=== PATIENT | female | born 1950 | race Caucasian/White ===

== ENCOUNTER 2017-02-15 05:14 | Emergency (ER) | payer MEDICARE ==
[2017-02-15] MEDS ORDERED: Fluor-I-Strip/Ful-Flo OP ONE ×2 (05:43→05:46)
[2017-02-15] MEDS ORDERED: TETRACAINE 0.5% STERI-UNIT SOL OP STA (05:43)
[2017-02-15] MEDS ORDERED: Eye-Stream Solution OP ONE (05:43)
[2017-02-15] MEDS ORDERED: Eye-Stream Solution ONE (05:46)
[2017-02-15] MEDS ORDERED: TETRACAINE 0.5% STERI-UNIT SOL OP ONE (05:46)
--- NOTE | 2017-02-15 06:16 | ERPHSYRPT ---
- History of Present Illness Time Seen by Provider: 02/15/17 05:25 Source: patient Exam Limitations: clinical condition Patient Subjective Stated Complaint: Pt sts has had conjunctivitis, been on gentamycin eye gtt and now cipro eye gtt for this. Sts woke up at 0200 and felt like she was looking through cobwebs at 0200. Sts at 0400 started seeing flashes of light. Pt unsure if she has had changes in peripheral vision. Triage Nursing Assessment: Pt alert, oriented, answers all questions appropriately. Skin p/w/d, resps non-labored. Eye appears reddened, no tearing noted. Physician History: PATIENT WITH HISTORY OF TYPE 2 DIABETES, AND HYPERTENSION COMPLAINS OF [place] WEBS FLOATERS IN RIGHT EYE VISION ASSOCIATED WITH BRIGHT FLASHING LIGHTS SINCE 2AM TODAY. DENIES EYE PAIN OR BLURRED VISION. RECENTLY BEEN TREATED FOR CONJUNCTIVITIS WITH 2 COURSES OF ANTIBIOTIC GENTAMYCIN FOLLOWED BY [facility]. Location: right eye Apparent Injury: no Associated Symptoms: other Visual Assistive Devices: Glasses Chemical Exposure: No Allergies/Adverse Reactions: cefuroxime [From Ceftin] Allergy (Verified 02/15/17 05:42) fluconazole [From Diflucan] Allergy (Verified 02/15/17 05:42) Sulfa (Sulfonamide Antibiotics) Allergy (Verified 02/15/17 05:42) Home Medications: Ciprofloxacin 0.3% Ophth [Ciloxan OPHTH] 2.5 ml OP 02/15/17 [History] Famotidine 40 mg PO DAILY 02/15/17 [History] Fluoxetine HCl [Prozac] 40 mg PO DAILY 02/15/17 [History] Lisinopril 5 mg [Zestril 5 MG] 5 mg PO DAILY 02/15/17 [History] Metformin HCl [Metformin HCl ER] 500 mg PO DAILY 02/15/17 [History] Omeprazole 40 mg PO DAILY 02/15/17 [History] Hx Influenza Vaccination/Date Given: No Hx Pneumococcal Vaccination/Date Given: Yes (prevnar 13) Immunizations Up to Date: Yes - Review of Systems Constitutional: No Fever, No Chills Eyes: Other (FLOATERS, FLASHING LIGHTS) Ears, Nose, & Throat: No Symptoms Respiratory: No Symptoms, No Cough, No Dyspnea Cardiac: No Symptoms, No Chest Pain, No Edema, No Syncope Abdominal/Gastrointestinal: No Symptoms, No Abdominal Pain, No Nausea, No Vomiting, No Diarrhea Genitourinary Symptoms: No Dysuria Musculoskeletal: No Back Pain, No Neck Pain Skin: No Rash Neurological: No Dizziness, No Focal Weakness, No Sensory Changes Psychological: No Symptoms Endocrine: No Symptoms All Other Systems: Reviewed and Negative - Past Medical History Pertinent Past Medical History: Yes Endocrine Medical History: Diabetes Type II GI Medical History: GERD Psycho-Social History: Depression Other Medical History: conjunctivitis - Past Surgical History Past Surgical History: Yes Gastrointestinal: Appendectomy, Cholecystectomy Female Surgical History: Hysterectomy Other Surgical History: submandibular gland removed, - Social History Smoking Status: Never smoker Exposure to second hand smoke: No Drug Use: none Patient Lives Alone: No - Nursing Vital Signs Nursing Vital Signs: Initial Vital Signs Temperature 98.0 F Temperature Source Oral Pulse Rate 82 Respiratory Rate 16 Blood Pressure [Right Arm] 156/103 Pain Intensity 3 - Physical Exam General Appearance: no apparent distress Vision Acuity Degree Evaluation Phase: Corrected Vision Acuity Right Eye: 20/30 Vision Acuity Left Eye: 20/50 Eye Exam: bilateral eye: normal inspection, PERRL, EOMI, other (FUNDIS DISC FLAT ) Neck Exam: normal inspection SpO2 Interpretation: normal SpO2: 96 Oxygen Delivery: Room Air Ordered Tests: Medication Summary Discontinued Medications Generic Name Dose Route Start Last Admin Trade Name Ashly PRN Reason Stop Dose Admin Eye Irrigation Solution 15 ml 02/15/17 05:43 02/15/17 05:49 Eye-Stream Solution OP 02/15/17 05:44 15 ml STAT ONE Administration Eye Irrigation Solution Confirm 02/15/17 05:46 Eye-Stream Solution Administered 02/15/17 05:47 Dose 30 ml .ROUTE .STK-MED ONE Fluorescein Sodium 1 mg 02/15/17 05:43 02/15/17 05:49 Pnljt-U-Iqucw/Ful-Pradeep OP 02/15/17 05:44 1 mg STAT ONE Administration Fluorescein Sodium Confirm 02/15/17 05:46 Tmzmn-K-Lvlxd/Ful-Pradeep Administered 02/15/17 05:47 Dose 1 mg OP .STK-MED ONE Tetracaine HCl 4 ml 02/15/17 05:43 02/15/17 05:50 Tetracaine 0.5% Steri-Unit Damaso OP 02/15/17 05:44 4 ml STAT STA Administration Tetracaine HCl Confirm 02/15/17 05:46 Tetracaine 0.5% Steri-Unit Damaso Administered 02/15/17 05:47 Dose 4 ml OP .STK-MED ONE - Progress Progress Note: 02/15/17 06:18 TETRACAINE OPHTHALMIC DAMASO 2GTTS OD, UPPER EYE LID EVERTED WITHOUT FOREIGH BODY, FLURO STRIP NEG, EYE STREAM Counseled pt/family regarding: diagnosis, need for follow-up - Departure Time of Disposition: 06:30 Departure Disposition: Home Clinical Impression: RIGHT EYE FLOATERS Condition: Stable Critical Care Time: No Referrals: NITESH AUGUSTINE DO [Primary Care Provider] - Additional Instructions: CALL THE [facility]IN[facility] SPECIALIST DR CHRIST THOMAS TODAY AT 9AM TO SCHEDULE APPOINTMENT FOR EVALUATION.
[2017-02-15 07:00] VITALS: BP 156/97; PULSE 77; O2SAT 95
== END 2017-02-15 06:55 | disposition home or self-care (01) ==
LOC: ED 05:14
DX: H43.391 Other vitreous opacities, right eye (principal)
CPT/HCPCS: 99283; A9270-GY